=== PATIENT | male | born 1975 | race African-American/Black ===

== ENCOUNTER 2022-03-05 20:52 | Emergency (ER) | payer OTHER, SELFPAY ==
--- NOTE | ~2022-03-05 | XR_ITS ---
EXAMINATION: XR ANKLE, LEFT CLINICAL INFORMATION: Swollen ankle COMPARISON: None TECHNIQUE: Four views of the left ankle. FINDINGS: The bones and soft tissues are normal. No fracture. Alignment is anatomic. Joint spaces are maintained. No joint effusion. XR/XR ankle LT 2V IMPRESSION: Normal left ankle.
[2022-03-05 21:13] VITALS: BP 153/97; PULSE 98; RESP 18; TEMP 37.1; O2SAT 99; BMI 36.6
--- NOTE | 2022-03-05 21:55 | ED_ITS ---
HPI - Extremity Injury (Lower) General Chief Complaint: Extremity Injury, Lower Stated Complaint: L Ankle pain Time Seen by Provider: 03/05/22 21:55 Source: patient Mode of arrival: ambulatory Limitations: no limitations History of Present Illness HPI Narrative: Patient presents to the emergency department for evaluation of left ankle pain. He reports 6 days ago upon awakening he had pain to the left lateral ankle. He thinks that he may have slept on it wrong. The pain improved after a few days. Had trial Voltaren gel and applying ice to the ankle. He reports that today he went bike riding when he developed worsening of his pain again. Pain is worse with weight-bearing. Feels that the ankle appear swollen. Denies any precipitating injury, fevers, chills, numbness or tingling to the extremity, prior injury to the ankle. Denies any leg pain/swelling or calf tenderness. Related Data Allergies Allergy/AdvReac Type Severity Reaction Status Date / Time No Known Allergies Allergy Unverified 06/16/20 15:44 [No Known Allergies*] Review of Systems Review of Systems: Musculoskeletal: Positive ankle pain Yes all other systems are reviewed and are negative [facility] Past Medical History Attestation statement: The following information was validated with the patient. Source: old records reviewed Social History Social History Advance Directives: No Advance Directives Information Provided: No Physical Exam Vital Signs: Vital Signs: Last Vital Signs Temp 98.7 F 03/05/22 21:13 Pulse 98 03/05/22 21:13 Resp 18 03/05/22 21:13 BP 153/97 H 03/05/22 21:13 Pulse Ox 99 03/05/22 21:13 BMI result Body Mass Index 36.6 Appearance: Alert.?Oriented to person, place and time. No acute distress.?Normal affect. Eyes: Pupils equal, round and reactive to light.? ENT: Pharynx normal.?? Neck: Normal inspection.? Neck supple.?? CVS: Heart sounds normal. Normal heart rate and rhythm.? Pulses normal.?? Respiratory: No respiratory distress.? Lung sounds clear to auscultation bilaterally?? Abdomen: Soft and non-tender. ?? Skin: Skin warm and dry.? Normal skin color.? ?? Extremities: No lower extremity edema.? No calf ttp, ?left ankle with no obvious deformity, erythema, swelling, rash. Palpable 2+ DP/PT pulse bilaterally. Neuro: Moves all extremities spontaneously. Sensation intact bilaterally. No motor deficits. Ambulates with normal steady gait. Course Course Course Narrative: Patient is a 46-year-old male no significant past medical history presenting to emergency department for evaluation of left lateral ankle pain. XR reveals no acute fracture dislocation. Not consistent septic arthritis. Suspect pain to be secondary to sprain of the ankle, advised conservative treatment rest, ice, compression, elevation, and use of Tylenol/ibuprofen as needed for pain. Applied Calvin bandaging given crutches. Discussed reasons to return back to the emergency department. Outpatient follow-up with his primary care provider as needed. Patient discharged home in stable condition. MDM - Extremity Injury (Lower) Imaging Data xr ankle: Radiologist's impression: XR/XR ankle LT 2V IMPRESSION: Normal left ankle. Discharge Plan Discharge Clinical Impression: Ankle sprain Patient Disposition: Home, Self-Care Instructions: Ankle Sprain (ED), R.I.C.E. Treatment (ED) Additional Instructions: Be sure to rest, apply ice, use compression with Calvin bandage or [id number] ankle brace, elevate the leg when possible. Slow progression with activities such as cycling. You can take ibuprofen 200 mg, 3 tablets (600mg) every 6-8 hours as needed for pain, in addition to Tylenol 500 mg, 2 tablets (1,000mg) every 4-6 hours as needed for pain, but not to exceed 3 doses daily (3,000mg).? Follow-up with your primary care provider as needed for continued pain. Return to the emergency department any new or worsening symptoms or concerns. Stand Alone Forms: Work/School Release Interventions: ED Discharge Assessment Last Done: 03/05/22 22:32 Discharge Date/Time: 03/05/22 22:44
== END 2022-03-05 22:44 | disposition home or self-care (01) ==
PROVIDERS: Emergency Provider Internal Medicine
DX: S93.402A Sprain of unspecified ligament of left ankle, initial encounter (principal); X58.XXXA Exposure to other specified factors, initial encounter; Y93.84 Activity, sleeping; Y92.013 Bedroom of single-family (private) house as the place of occurrence of the external cause; Y99.9 Unspecified external cause status
CPT/HCPCS: 73600; 99283